=== PATIENT | female | born 1995 | race American Indian/Alaskan Native ===

== ENCOUNTER 2021-01-20 10:11 | Emergency (ER) | payer SELFPAY ==
[2021-01-20 11:04] VITALS: BP 121/48
--- NOTE | 2021-01-20 11:07 | Emergency Department Report ---
ED HPI - General Chief complaint: Vaginal Bleeding Stated complaint: 7 WKS /BLEEDING Time Seen by Provider: 01/20/21 11:04 Source: patient Mode of arrival: Ambulatory Limitations: No Limitations - History of Present Illness Initial comments: 25-year-old -Greek female patient presents with complaints of vaginal bleeding in starting this morning. She states she is 7 weeks and currently following with an FIRESTOP/CON[employer]MENT WORKER. Patient states she had a normal ultrasound 1 week ago. She denies any vaginal discharge, dyspareunia, hematuria, urinary frequency/dysuria, or abdominal pain. No fever/chills/sweats per patient. She states she is A1. Patient reports she has gone through 2 pads since the onset of bleeding this morning. Patient states she is otherwise feeling well. - Related Data Allergies Allergy/AdvReac Type Severity Reaction Status Date / Time No Known Allergies Allergy Verified 01/20/21 11:01 ED Review of Systems ROS: Stated complaint: 7 WKS /BLEEDING Other details as noted in HPI Constitutional: denies: chills, fever, malaise Respiratory: denies: cough, shortness of breath Cardiovascular: denies: chest pain Gastrointestinal: denies: abdominal pain, nausea, vomiting, diarrhea, constipati on, hematemesis, melena, hematochezia Genitourinary: abnormal menses. denies: urgency, dysuria, frequency, hematuria, discharge, dyspareunia Skin: denies: rash, lesions Neurological: denies: headache, paresthesias ED Physical Exam - General Limitations: No Limitations General appearance: alert, in no apparent distress - Head Head exam: Present: atraumatic, normocephalic - Eye Eye exam: Present: normal appearance - Neck Neck exam: Present: normal inspection - Respiratory Respiratory exam: Present: normal lung sounds bilaterally. Absent: respiratory distress - Cardiovascular Cardiovascular Exam: Present: regular rate, normal rhythm - GI/Abdominal GI/Abdominal exam: Present: soft, normal bowel sounds. Absent: distended, tenderness, guarding, rebound, rigid - Extremities Exam Extremities exam: Present: full ROM - Back Exam Back exam: Present: normal inspection - Neurological Exam Neurological exam: Present: alert, oriented X3, normal gait - Psychiatric Psychiatric exam: Present: normal affect, normal mood - Skin Skin exam: Present: warm, dry, intact, normal color. Absent: rash ED Course Vital Signs 01/20/21 01/20/21 11:01 11:04 Temperature 99.2 F Pulse Rate 87 Respiratory 16 Rate Blood Pressure 121/48 O2 Sat by Pulse 99 Oximetry ED Medical Decision Making - Lab Data Result diagrams: 01/20/21 11:23 01/20/21 11:23 Lab Results 01/20/21 01/20/21 01/20/21 Range/Units 11:23 11:23 11:23 WBC 10.3 (4.5-11.0) K/mm3 RBC 4.38 (3.65-5.03) M/mm3 Hgb 13.9 (10.1-14.3) gm/dl Hct 39.3 (30.3-42.9) % MCV 90 (79-97) fl MCH 32 (28-32) pg MCHC 35 H (30-34) % RDW 14.4 (13.2-15.2) % Plt Count 266 (140-440) K/mm3 Lymph % (Auto) 23.9 (13.4-35.0) % Lewis % (Auto) 8.3 H (0.0-7.3) % Eos % (Auto) 0.9 (0.0-4.3) % Baso % (Auto) 0.3 (0.0-1.8) % Lymph # (Auto) 2.5 (1.2-5.4) K/mm3 Lewis # (Auto) 0.9 H (0.0-0.8) K/mm3 Eos # (Auto) 0.1 (0.0-0.4) K/mm3 Baso # (Auto) 0.0 (0.0-0.1) K/mm3 Seg Neutrophils % 66.6 (40.0-70.0) % Seg Neutrophils # 6.8 (1.8-7.7) K/mm3 Sodium 136 L (137-145) mmol/L Potassium 5.2 H (3.6-5.0) mmol/L Chloride 102.2 (98-107) mmol/L Carbon Dioxide 22 (22-30) mmol/L Anion Gap 17 mmol/L BUN 9 (7-17) mg/dL Creatinine 0.7 (0.6-1.2) mg/dL Estimated GFR > 60 ml/min BUN/Creatinine Ratio 13 % Glucose 85 (65-100) mg/dL Calcium 9.3 (8.4-10.2) mg/dL Total Bilirubin 0.30 (0.1-1.2) mg/dL AST 46 H (5-40) units/L ALT 28 (7-56) units/L Alkaline Phosphatase 57 (35-129) units/L Total Protein 7.3 (6.3-8.2) g/dL Albumin 4.1 (3.9-5) g/dL Albumin/Globulin Ratio 1.3 % HCG, Quant 10948 H (0-4) mIU/mL Urine Color (Yellow) Urine Turbidity (Clear) Urine pH (5.0-7.0) Ur Specific Irving (1.003-1.030) Urine Protein (Negative) mg/dL Urine Glucose (UA) (Negative) mg/dL Urine Ketones (Negative) mg/dL Urine Blood (Negative) Urine Nitrite (Negative) Urine Bilirubin (Negative) Urine Urobilinogen (<2.0) mg/dL Ur Leukocyte Esterase (Negative) Urine WBC (Auto) (0.0-6.0) /HPF Urine RBC (Auto) (0.0-6.0) /HPF U Epithel Cells (Auto) (0-13.0) /HPF Urine Bacteria (Auto) (Negative) /HPF Urine Mucus /HPF Blood Type 01/20/21 01/20/21 Range/Units 11:23 Unknown WBC (4.5-11.0) K/mm3 RBC (3.65-5.03) M/mm3 Hgb (10.1-14.3) gm/dl Hct (30.3-42.9) % MCV (79-97) fl MCH (28-32) pg MCHC (30-34) % RDW (13.2-15.2) % Plt Count (140-440) K/mm3 Lymph % (Auto) (13.4-35.0) % Lewis % (Auto) (0.0-7.3) % Eos % (Auto) (0.0-4.3) % Baso % (Auto) (0.0-1.8) % Lymph # (Auto) (1.2-5.4) K/mm3 Lewis # (Auto) (0.0-0.8) K/mm3 Eos # (Auto) (0.0-0.4) K/mm3 Baso # (Auto) (0.0-0.1) K/mm3 Seg Neutrophils % (40.0-70.0) % Seg Neutrophils # (1.8-7.7) K/mm3 Sodium (137-145) mmol/L Potassium (3.6-5.0) mmol/L Chloride (98-107) mmol/L Carbon Dioxide (22-30) mmol/L Anion Gap mmol/L BUN (7-17) mg/dL Creatinine (0.6-1.2) mg/dL Estimated GFR ml/min BUN/Creatinine Ratio % Glucose (65-100) mg/dL Calcium (8.4-10.2) mg/dL Total Bilirubin (0.1-1.2) mg/dL AST (5-40) units/L ALT (7-56) units/L Alkaline Phosphatase (35-129) units/L Total Protein (6.3-8.2) g/dL Albumin (3.9-5) g/dL Albumin/Globulin Ratio % HCG, Quant (0-4) mIU/mL Urine Color Yellow (Yellow) Urine Turbidity Slightly-cloudy (Clear) Urine pH 6.0 (5.0-7.0) Ur Specific Irving 1.027 (1.003-1.030) Urine Protein 30 mg/dl (Negative) mg/dL Urine Glucose (UA) Neg (Negative) mg/dL Urine Ketones Neg (Negative) mg/dL Urine Blood Lg (Negative) Urine Nitrite Neg (Negative) Urine Bilirubin Neg (Negative) Urine Urobilinogen 2.0 (<2.0) mg/dL Ur Leukocyte Esterase Tr (Negative) Urine WBC (Auto) 2.0 (0.0-6.0) /HPF Urine RBC (Auto) 3.0 (0.0-6.0) /HPF U Epithel Cells (Auto) 29.0 H (0-13.0) /HPF Urine Bacteria (Auto) 2+ (Negative) /HPF Urine Mucus 1+ /HPF Blood Type B POSITIVE - Radiology Data Radiology results: report reviewed TRANSVAGINAL OB PELVIC ULTRASOUND INDICATION / CLINICAL INFORMATION: Vaginal bleeding. COMPARISON: None available. FINDINGS: The uterus measures 10.8 x 5.9 x 6.8 cm. There is an intrauterine gestational sac with a pole measuring 7 weeks by crown-rump length. There is good correlation with clinical dates. A yolk sac is present. There is cardiac activity with a heart rate of 141 bpm. There is a small area of subchorionic hemorrhage adjacent to the anterior aspect of the sac measuring approximately 2.3 cm in greatest dimension. Both ovaries are normal in appearance and demonstrate normal blood flow on Doppler exam. There is no evidence of adnexal mass or free fluid. IMPRESSION: Single viable 7 week intrauterine with a small associated area of subchorionic hemorrhage. - Medical Decision Making 25-year-old -Greek female patient presents with complaints of vaginal bleeding in starting this morning. She states she is 7 weeks and currently following with an [employer]MENT WORKER. Patient states she had a normal ultrasound 1 week ago. She denies any vaginal discharge, dyspareunia, hematuri a, urinary frequency/dysuria, or abdominal pain. No fever/chills/sweats per patient. She states she is A1. Patient reports she has gone through 2 pads since the onset of bleeding this morning. Patient states she is otherwise feeling well. No abdominal tenderness to palpation on exam. No significant abnormalities noted on CBC or UA. CMP shows mildly elevated potassium at 5.2-possible clotting of blood sample versus dehydration. She denies any chest pain or palpitations. Increased water intake recommended and follow up with OBGYN on Friday for recheck. Pt's vitals are normal, she is well-appearing and she is stable for discharge home. Pelvic rest and strict return precautions were discussed in detail with pt who verbalizes understanding. Critical care attestation.: If time is entered above; I have spent that time in minutes in the direct care of this critically ill patient, excluding procedure time. ED Disposition Clinical Impression: Subchorionic hemorrhage in first trimester Disposition: DC-01 TO HOME OR SELFCARE Is pt being admited?: No Condition: Stable Instructions: Subchorionic Hematoma, Vaginal Bleeding During , First Trimester, Activity Restriction During Additional Instructions: Please follow-up with your FIRESTOP/CONTAINMENT WORKER within 2-3 days.
[2021-01-20 12:03] LABS: Basophils % (Auto) 0.3 % (0.0-1.8); Eosinophils # (Auto) 0.1 K/mm3 (0.0-0.4); Eosinophils % (Auto) 0.9 % (0.0-4.3); Hematocrit 39.3 % (30.3-42.9); Hemoglobin 13.9 gm/dl (10.1-14.3); Lymphocytes # (Auto) 2.5 K/mm3 (1.2-5.4); Lymphocytes % (Auto) 23.9 % (13.4-35.0); Mean Corpuscular HGB Conc 35 % (30-34); Mean Corpuscular Volume 90 fl (79-97); Monocytes # (Auto) 0.9 K/mm3 (0.0-0.8); Monocytes % (Auto) 8.3 % (0.0-7.3); Red Blood Count 4.38 M/mm3 (3.65-5.03); Red Cell Distribution Width 14.4 % (13.2-15.2)
[2021-01-20 12:06] LABS: Platelet Count 266 K/mm3 (140-440)
[2021-01-20 12:24] LABS: Alanine Aminotransferase 28 units/L (7-56); Albumin 4.1 g/dL (3.9-5); Blood Urea Nitrogen 9 mg/dL (7-17); Calcium 9.3 mg/dL (8.4-10.2); Hemolysis Index 421
[2021-01-20 12:27] LABS: BUN/Creatinine Ratio 13
[2021-01-20 12:43] LABS: Bacteria,Urine 2+ /HPF (Negative); Bilirubin,Urine NEG (Negative); Blood,Urine LG (Negative); Color,Urine Yellow (Yellow); Mucus,Urine 1+ /HPF
--- NOTE | 2021-01-20 14:24 | Ultrasound Report ---
TRANSVAGINAL OB PELVIC ULTRASOUND INDICATION / CLINICAL INFORMATION: Vaginal bleeding. COMPARISON: None available. FINDINGS: The uterus measures 10.8 x 5.9 x 6.8 cm. There is an intrauterine gestational sac with a pole m easuring 7 weeks by crown-rump length. There is good correlation with clinical dates. A yolk sac is p resent. There is cardiac activity with a heart rate of 141 bpm. There is a small area of subcho rionic hemorrhage adjacent to the anterior aspect of the sac measuring approximately 2.[address] dimension. Both ovaries are normal in appearance and demonstrate normal blood flow on Doppler exam. There is no evidence of adnexal mass or free fluid. IMPRESSION: Single viable 7 week intrauterine with a small associated area of subchorionic hemorrhage. Signer Name: Franco Smith MD Signed: 01/20/2021 2:19 PM Workstation Name: [id number]
== END 2021-01-20 15:00 | disposition home or self-care (01) ==
LOC: ED 10:11
DX: O20.9 Hemorrhage in early pregnancy, unspecified (principal); Z3A.01 Less than 8 weeks gestation of pregnancy
CPT/HCPCS: 36415; 76801; 76817; 80053; 81001; 84702; 85025; 86900; 86901; 99284